=== PATIENT | female | born 1950 | race Caucasian/White ===

== ENCOUNTER 2019-07-06 14:29 | Observation (INO) ==
[2019-07-06] MEDS ORDERED: KETOROLAC 30 MG/ML VIAL IV STA (15:05)
[2019-07-06 15:12] LABS: Basophils # (auto) 0.03 K/uL (0-0.2); Basophils % (auto) 0.3 %; Eosinophils # (auto) 0.13 K/uL (0-0.5); Eosinophils % (auto) 1.2 %; Hematocrit (blood only) 45.5 % (37-47); Hemoglobin 15.2 g/dL (12.0-16.0); Immature Granulocytes # (auto) 0.04 K/uL (0.00-0.02); Immature Granulocytes % (auto) 0.4 %; Lymphocytes # (auto) 1.91 K/uL (1.2-3.4); Lymphocytes % (auto) 17.5 %; Mean Corpuscular Hgb Conc 33.4 g/dL (32-36); Mean Corpuscular Volume 87.7 fL (80-100); Mean Platelet Volume 9.5 fL (7.4-10.4); Monocytes % (auto) 8.2 %; Neutrophils # (auto) 7.93 K/uL (1.4-6.5); Neutrophils % (auto) 72.4 %; Platelet Count 255 K/uL (130-400); RDW Coefficient of Variation 13.6 % (11.5-14.5); RDW Standard Deviation 43.8 fL (36.4-46.3); Red Blood Count 5.19 M/uL (4.2-5.4); White Blood Count 10.94 K/uL (4.8-10.8)
[2019-07-06] MEDS ORDERED: SODIUM CHLORIDE 0.9% 500 ML IV SCH (15:15)
[2019-07-06 15:23] LABS: Alanine Aminotransferase 19 U/L (12-78); Aspartate Aminotransferase 17 U/L (15-37); BUN Creatinine Ratio 12.8 (10-20); Blood Urea Nitrogen 12 mg/dl (7-18); Carbon Dioxide 28 mmol/L (21-32); Chloride 101 mmol/L (98-107); Creatinine Clr Calc Pharmacy 49.7 ml/min; Est GFR (African American) 74.1; Est GFR (Non-African American) 63.9; Glucose 100 mg/dl (70-99); Potassium 3.9 mmol/L (3.5-5.1); Sodium 136 mmol/L (136-145)
[2019-07-06 15:27] LABS: Partial Thromboplastin Time 27.3 Seconds (21.0-31.0)
[2019-07-06 15:28] LABS: Albumin Globulin Ratio 1.1 (0.9-2); Alkaline Phosphatase 70 U/L (45-117); Bilirubin,Total 0.7 mg/dl (0.2-1); Globulin 3.5 gm/dl (2.5-4.0); Total Protein 7.5 gm/dl (6.4-8.2); Troponin I < 0.015 ng/ml (0-0.045)
[2019-07-06 15:30] LABS: D Dimer 710 ug/L FEU (0-500)
--- NOTE | 2019-07-06 15:47 | XRay Report ---
XR chest 1V portable CLINICAL HISTORY: Dyspnea. COMPARISON STUDY: Chest CT April 18, 2019. Chest radiograph June 25, 2019. FINDINGS: Lung volumes are normal. Lungs are clear. There is no pneumothorax or pleural effusion. Car diac size is normal. Mediastinal contours are normal. There is no evidence for pulmonary edema. Minim al left basilar opacity favors epicardial fat pad or atelectasis IMPRESSION: No acute cardiopulmonary findings. Electronically signed by: Fadi Willoughby M.D. 07/06/2019 3:45 PM
[2019-07-06] MEDS ORDERED: OPTIRAY 320 125ml IV PRN (16:24)
--- NOTE | 2019-07-06 16:46 | CT Scan Report ---
CT angio chest PE protocol CT DOSE: 289.57 mGy.cm HISTORY: 68 years-old Female with PE. Acute shortness of breath with right-sided back pain TECHNIQUE: Multiple CTA images of the chest were obtained after the intravenous administration of 120 ml Optiray 320. Coronal and sagittal MIPS were obtained from the axial data set and were submitted for review. All measurements were obtained according to NASCET criteria. A dose lowering technique w as utilized adhering to the principles of ALARA. COMPARISON: Chest radiograph of same day, CTA chest 04/18/2019 FINDINGS: CTA: Heart is normal in size without pericardial effusion. No thoracic aortic aneurysm or dissection. Chávez ncy of the imaged great vessels. 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 The pulmonary arterial tree is opacified to the level of the subsegmenta l branches. Filling defects are noted within subsegmental branches of the right upper and posterior b devan segments of the right lower lobe. No central pulmonary emboli. No evidence of right heart strain . CT CHEST: No focal thyroid nodule or adenopathy. Trace right pleural effusion. No pneumothorax. Suggestion of m ild emphysema. Subsegmental left basilar atelectasis. 1.7 x 1.2 cm pleural-based consolidative opacit y of the posterior segment right upper lobe is noted on image 27 series 4. Mild adjacent pleural calc ifications are noted. Dependent subsegmental consolidation about the basal right lower lobe. Central airways are patent. Mild bibasilar bronchial wall thickening. Scattered hypodense lesions about the liver redemonstrated suggestive of probable cysts. Small hiatal hernia with mild wall thickening about the distal esophagus. Degenerative changes of the shoulders a nd spine. The bones appear intact. Mild anterior wedge deformity of the T11 vertebral body, unchanged . IMPRESSION: 1. Subsegmental pulmonary emboli of the right upper and lower lobes. No central pulmonary emboli. 2. Trace right pleural effusion with subsegmental consolidation about the posterior segment right upp er lobe suggestive of developing pulmonary infarct. 3. Additional findings as above. The above report was generated using voice recognition software. It may contain grammatical, syntax o r spelling errors. Electronically signed by: Herman Chawla M.D. 07/06/2019 4:44 PM
[2019-07-06] MEDS ORDERED: HEPARIN SODIUM/DEXTROSE 25,000 UNITS/500 ML BAG IV SCH ×2 (17:15→20:15)
[2019-07-06] MEDS ORDERED: HEPARIN SOD 5,000 UNIT/0.5 ML VIAL ONE (17:25)
--- NOTE | 2019-07-06 17:35 | Emergency Department Note ---
Entered by Rory Doran acting as a scribe for History of Present Illness General Chief complaint: Shortness of Breath/Dyspnea Time Seen by Provider: 07/06/19 14:54 Source: patient History of Present Illness Onset (ago): hour(s) (this morning) Location: back (upper right) Pain Consistency: + constant Maximum Pain Intensity: 5 Exacerbated By: + movement Associated symptoms: + shortness of breath; no cough and no fever/chills The patient is a 68 year old female who presents to the Emergency Room with complaints of constant upper right back pain that began this morning. The patient states that she can not take a full, deep breath without pain. The patient notes that it sometimes worsens with movement. The patient denies a cough or fever. The patient also reports a few weeks ago she was diagnosed with pneumonia. Home Medications Home Medications Medication Instructions Recorded Confirmed Type clonazepam [Klonopin] 1 mg PO TID 04/18/19 07/06/19 History venlafaxine 150 mg PO QAM 07/06/19 07/06/19 History Allergies Allergy/AdvReac Type Severity Reaction Status Date / Time gluten Allergy Verified 06/25/19 15:49 No Known Drug Allergies Allergy Verified 06/25/19 15:49 Past Med/Surg History Medical History Basal cell carcinoma of skin of face (Acute) Depression (Acute) Tardive dyskinesia (Acute) Pain in throat (Inactive) Pain, dental (Inactive) Tongue pain (Inactive) Family History Mother Parkinson's disease Father Renal failure Basal cell carcinoma Grandmother Diabetes Malignant neoplasm of larynx Malignant neoplasm of cervix Cardiac disorder Grandmother Malignant neoplasm of cervix Grandfather Bleeding ulcer Grandfather Cardiac disorder Other No significant family history Social History Feels Safe at Home: Yes Smoking Status: Never smoker Review of Systems See HPI for pertinent positives & negatives. and A total of 10 systems reviewed and were otherwise negative Physical Exam Vital Signs Vital Signs - 24 hr 07/06/19 14:48 07/06/19 14:58 07/06/19 15:26 Temperature 37.2 C Temperature Source Oral Sepsis Recent Fever Within 48 Hours No Sepsis New/Unexplained Change in Mental Status No Sepsis Action Taken by Nursing No Action Required Pulse Rate 117 H Pulse Rate [Apical] Respiratory Rate 18 Respiratory Effort / Characteristics Non-Labored Spontaneous Respiratory Depth Normal Respiratory Pattern Regular Blood Pressure 146/94 H Blood Pressure [Right Arm] Blood Pressure Mean 111 Blood Pressure Mean [Right Arm] Pulse Oximetry 95 95 Oxygen Delivery Method Room Air Room Air Room Air Oxygen Flow Rate 95 07/06/19 15:49 07/06/19 17:01 Temperature Temperature Source Sepsis Recent Fever Within 48 Hours Sepsis New/Unexplained Change in Mental Status Sepsis Action Taken by Nursing Pulse Rate Pulse Rate [Apical] 112 H 113 H Respiratory Rate 18 20 Respiratory Effort / Characteristics Non-Labored Respiratory Depth Normal Respiratory Pattern Blood Pressure Blood Pressure [Right Arm] 127/86 130/75 Blood Pressure Mean Blood Pressure Mean [Right Arm] 99 93 Pulse Oximetry 98 Oxygen Delivery Method Room Air Oxygen Flow Rate CONSTITUTIONAL/VITAL SIGNS: Reviewed / noted above. GENERAL: Non-toxic in appearance. INTEGUMENTARY: Warm, dry, and [place]. HEAD: Normocephalic. EYES: without scleral icterus or trauma. ENT/OROPHARYNX: clear and moist. LYMPHADENOPATHY/NECK: Is supple without lymphadenopathy or meningismus. RESPIRATORY: Lungs clear and equal. CARDIOVASCULAR: Regular rate and rhythm. GI/ABDOMEN: Soft and nontender. No organomegaly or pulsatile mass. No rebound or guarding. Normal bowel sounds. EXTREMITIES: Warm and well perfused. BACK: No CVA tenderness. NEUROLOGICAL: Intact without focal deficits. PSYCHIATRIC: normal affect. MUSCULOSKELETAL: Normally developed with good muscle tone. Course 1502: Past medical records reviewed. The patient was evaluated in room C4. A complete history and physical exam was performed. 1702: I discussed the patient's case with Dr. Chin-Hospitalist [place]. Dr. Chin will further evaluate the patient. 1719: I updated the patient on her case. Consultations Consultation #1: I discussed the patient's case with Dr. Chin-[place]. Dr. Chin will further evaluate the patient. Time: 17:02 Administered Medications Heparin Sodium/Dextrose (Heparin Sodium/Dextrose) 25,000 units in 500 mls @ 0.02 mls/hr IV .Q24H [facility]; Protocol Stop: 08/05/19 17:14 Last Admin: 07/06/19 17:30 Dose: 1,050 units/hr, 21 mls/hr Documented by: [id number] Cosigned by: [id number] Ioversol (Optiray 320 125ml) 120 ml IV ONCE PRN PRN Reason: Interaction Checking Stop: 07/10/19 16:23 Last Admin: 07/06/19 16:25 Dose: 120 ml Documented by: [id number] Discontinued Medications Heparin Sodium (Porcine) (Heparin Sodium (Porcine)) Confirm Administered Dose 5,000 units .ROUTE .STK-MED ONE Stop: 07/06/19 17:26 Last Admin: 07/06/19 17:30 Dose: 5,000 units Documented by: [id number] Cosigned by: [id number] Heparin Sodium/Dextrose () 1 ea IV NOW STA; Protocol Stop: 07/06/19 17:08 Last Admin: 07/06/19 17:31 Dose: Not Given Documented by: [id number] Sodium Chloride (Nss) 500 mls @ 999 mls/hr IV .Q31M [place] Stop: 07/06/19 15:45 Last Infusion: 07/06/19 16:32 Dose: 0 mls/hr Documented by: [id number] Admin: 07/06/19 15:20 Dose: 999 mls/hr Documented by: [id number] Ketorolac Tromethamine (Toradol) 30 mg IV NOW STA Stop: 07/06/19 15:06 Last Admin: 07/06/19 15:20 Dose: 30 mg Documented by: [id number] Medical Decision Making Differential Diagnosis Differential diagnosis: Etiologies such as cardiac ischemia, aortic dissection, pulmonary embolism, pneumonia, pneumothorax, musculoskeletal, infections, pericarditis, myocarditis, esophageal rupture, gastrointestinal, as well as others were entertained. Medical Records Attestation: I reviewed the patient's medical records. Home Medications Current Medication List: was personally reviewed by me Laboratory Data Attestation: I reviewed the patient's lab results. Result diagrams: 07/06/19 14:55 07/06/19 14:55 Lab Results 07/06/19 07/06/19 07/06/19 Range/Units 14:55 14:55 14:55 WBC 10.94 H (4.8-10.8) K/uL RBC 5.19 (4.2-5.4) M/uL Hgb 15.2 (12.0-16.0) g/dL Hct 45.5 (37-47) % MCV 87.7 (80-100) fL MCH 29.3 (25-34) pg MCHC 33.4 (32-36) g/dL RDW Std Deviation 43.8 (36.4-46.3) fL RDW Coeff of Antonio 13.6 (11.5-14.5) % Plt Count 255 (130-400) K/uL MPV 9.5 (7.4-10.4) fL Immature Gran % (Auto) 0.4 % Neut % (Auto) 72.4 % Lymph % (Auto) 17.5 % Cotton % (Auto) 8.2 % Eos % (Auto) 1.2 % Baso % (Auto) 0.3 % Immature Gran # (Auto) 0.04 H (0.00-0.02) K/uL Neut # (Auto) 7.93 H (1.4-6.5) K/uL Lymph # (Auto) 1.91 (1.2-3.4) K/uL Cotton # (Auto) 0.90 H (0.11-0.59) K/uL Eos # (Auto) 0.13 (0-0.5) K/uL Baso # (Auto) 0.03 (0-0.2) K/uL PT 10.0 (9.0-12.0) Seconds INR 1.0 (0.9-1.1) APTT 27.3 (21.0-31.0) Seconds PTT Ratio 1.0 D-Dimer 710 H* (0-500) ug/L FEU Sodium 136 (136-145) mmol/L Potassium 3.9 (3.5-5.1) mmol/L Chloride 101 (98-107) mmol/L Carbon Dioxide 28 (21-32) mmol/L Anion Gap 7.0 (3-11) BUN 12 (7-18) mg/dl Creatinine 0.91 (0.6-1.2) mg/dl Est Cr Clr Drug Dosing 49.7 ml/min Est GFR ( Amer) 74.1 Est GFR (Non-Af Amer) 63.9 BUN/Creatinine Ratio 12.8 (10-20) Glucose 100 H (70-99) mg/dl Calcium 9.0 (8.5-10.1) mg/dl Total Bilirubin 0.7 (0.2-1) mg/dl AST 17 (15-37) U/L ALT 19 (12-78) U/L Alkaline Phosphatase 70 (45-117) U/L Troponin I < 0.015 (0-0.045) ng/ml Total Protein 7.5 (6.4-8.2) gm/dl Albumin 4.0 (3.4-5.0) gm/dl Globulin 3.5 (2.5-4.0) gm/dl Albumin/Globulin Ratio 1.1 (0.9-2) Imaging Data Radiologist's Impression: Radiology results as stated below per my review and the radiologist's interpretation: XR chest 1V portable CLINICAL HISTORY: Dyspnea. COMPARISON STUDY: Chest CT April 18, 2019. Chest radiograph June 25, 2019. FINDINGS: Lung volumes are normal. Lungs are clear. There is no pneumothorax or pleural effusion. Cardiac size is normal. Mediastinal contours are normal. There is no evidence for pulmonary edema. Minimal left basilar opacity favors epicardial fat pad or atelectasis IMPRESSION: No acute cardiopulmonary findings. CT angio chest PE protocol CT DOSE: 289.57 mGy.cm HISTORY: 68 years-old Female with PE. Acute shortness of breath with right- sided back pain TECHNIQUE: Multiple CTA images of the chest were obtained after the intravenous administration of 120 ml Optiray 320. Coronal and sagittal MIPS were obtained from the axial data set and were submitted for review. All measurements were obtained according to NASCET criteria. A dose lowering technique was utilized adhering to the principles of ALARA. COMPARISON: Chest radiograph of same day, CTA chest 04/18/2019 FINDINGS: CTA: Heart is normal in size without pericardial effusion. No thoracic aortic aneurysm or dissection. Patency of the imaged great vessels. 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 The pulmonary arterial tree is opacified to the level of the subsegmental branches. Filling defects are noted within subsegmental branches of the right upper and posterior basal segments of the right lower lobe. No central pulmonary emboli. No evidence of right heart strain. CT CHEST: No focal thyroid nodule or adenopathy. Trace right pleural effusion. No pneumothorax. Suggestion of mild emphysema. Subsegmental left basilar atelectasis. 1.7 x 1.2 cm pleural-based consolidative opacity of the posterior segment right upper lobe is noted on image 27 series 4. Mild adjacent pleural c alcifications are noted. Dependent subsegmental consolidation about the basal right lower lobe. Central airways are patent. Mild bibasilar bronchial wall thickening. Scattered hypodense lesions about the liver redemonstrated suggestive of probable cysts. Small hiatal hernia with mild wall thickening about the distal esophagus. Degenerative changes of the shoulders and spine. The bones appear intact. Mild anterior wedge deformity of the T11 vertebral body, unchanged. IMPRESSION: 1. Subsegmental pulmonary emboli of the right upper and lower lobes. No central pulmonary emboli. 2. Trace right pleural effusion with subsegmental consolidation about the posterior segment right upper lobe suggestive of developing pulmonary infarct. 3. Additional findings as above. The above report was generated using voice recognition software. It may contain grammatical, syntax or spelling errors. Electronically signed by: Herman Chawla M.D. 07/06/2019 4:44 PM Electronically signed by: Fadi Willoughby M.D. 07/06/2019 3:45 PM ECG Data Attestation: I personally reviewed and interpreted this ECG as follows: Indication: back/shoulder pain Rate (beats per minute): 111 Rhythm: sinus tachycardia Findings: no PAC, no PVC, no ST elevation and no ectopy Blood Pressure Blood Pressure Findings: Normal blood pressure MDM Narrative Presents to the ED with a chief complaint of right upper back pain. The patient states that she has had it since this morning. She denies any cough or fevers. She was treated for pneumonia a few weeks ago. The patient states that she take cannot take a full breath without causing increase in pain. The patient's exam was unremarkable. Her CBC is unremarkable. D-dimer was slightly elevated. Complete metabolic panel was normal, troponin was negative and EKG showed a sinus tach at a rate of 111 with the S1 Q3 inverted T3 abnormality. A chest x- ray was clear. A CT scan of the chest reveals multiple subsegmental PEs in the right upper lung. The patient was started on IV heparin. I spoke with the hospitalist, who will see the patient for further inpatient evaluation and care. Impression & Plan Pulmonary embolism Discharge Plan Visit Data Chief Complaint: Shortness of Breath/Dyspnea ED Provider: Butch Matias Discharge Problem: Pulmonary embolism Patient Disposition: Being Evaluated by Hospitalist Forms Stand Alone Forms: My [facility] Prescriptions Prescriptions: No Action venlafaxine 150 mg capsule,extended release 24hr 150 mg PO QAM RF: 0 clonazepam [Klonopin] 1 mg Tablet 1 mg PO TID RF: 0 Referrals Referrals: Linda Giang MD [Primary Care Provider] - Discharge Problem: Pulmonary embolism Qualifiers: Pulmonary embolism type: unspecified Chronicity: unspecified Acute cor pulmonale presence: without acute cor pulmonale Qualified Code(s): I26.99 - Other pulmonary embolism without acute cor pulmonale The scribe's documentation has been prepared under my direction and personally reviewed by me in its entirety. I confirm that the note above accurately reflects all work, treatment, procedures, and medical decision making performed by me.
--- NOTE | 2019-07-06 18:12 | History & Physical Report ---
Date of Service July 06, 2019 Assessment & Plan (1) Pulmonary embolism: CTA chest on 07/06 showed subsegmental pulmonary emboli of the right upper and lower lobes. Also noted some possible pulmonary infarction in the RUL which is likely causing her pleuritic pain. No signs/symptoms of DVT in either leg. Troponin negative. - Started heparin gtt in the ED - Transition to NOAC tomorrow if able - There is some controversy over treating a subsegmental PE; however, given the accompanying pulmonary infarct, I believe risk:benefit favors anticoagulation. - Will need minimum of 3 months of anticoagulation. 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 This one could possible be considered provoked from bed rest for her bronchitis, though this is a fairly light cause. Her daughter has had several VTE events, leading me to think she may have a secondary cause of her VTE. Given the myriad types of inherited hypercoagulable issues and the possibility of her daughter already undergoing testing, will hold off on this treatment until she is able to speak with her daughter. (2) Bipolar 2 disorder: Was seeing a psychiatrist and was on antipsychotic treatment from which she developed tardive dyskinesia. - Weaned herself off - Still on venlafaxine and Klonopin - Would like to see psych while inpatient History of Present Illness Primary Care Provider: Linda Giang MD Ms. Pires is a 68-year-old female with a history of bipolar disorder and a remote DVT after her who presents with subsegmental pulmonary embolism and possible pulmonary infarction. She was treated in mid June for an acute bronchitis by her PCP. She reports that she felt well for approximately 1 week after finishing her steroids and antibiotics. However in late June, she reports feeling increasingly fatigued. Otherwise she reports feeling normal. Today while working at her computer, she noted some right upper back discomfort. The pain is worse with inspiration and had no knowing alleviating factors. The pain continued to worsen throughout the day, and she presented to the emergency department due to this pain. She denies any significant shortness of breath, cough, hemoptysis, nausea, vomiting, or other review of systems. Of note, the patient's daughter has had multiple issues with blood clots. Some of these were in the context of hormone therapy for IVF; however, she then had what sounds like an IVC thrombus off any. The patient does not know if her daughter underwent any testing for hypercoaguable work-up. Allergies Allergy/AdvReac Type Severity Reaction Status Date / Time gluten Allergy Verified 06/25/19 15:49 No Known Drug Allergies Allergy Verified 06/25/19 15:49 Home Medications Home Medications Medication Instructions Recorded Confirmed Type clonazepam [Klonopin] 1 mg PO TID 04/18/19 07/06/19 History venlafaxine 150 mg PO QAM 07/06/19 07/06/19 History Past Med/Surg History Medical History Basal cell carcinoma of skin of face (Acute) Depression (Acute) Tardive dyskinesia (Acute) Bipolar 2 disorder H/O: hysterectomy Pain in throat (Inactive) Pain, dental (Inactive) Tongue pain (Inactive) Family History Mother Parkinson's disease Father Renal failure Basal cell carcinoma Grandmother Diabetes Malignant neoplasm of larynx Malignant neoplasm of cervix Cardiac disorder Grandmother Malignant neoplasm of cervix Grandfather Bleeding ulcer Grandfather Cardiac disorder Other No significant family history Social History Feels Safe at Home: Yes Smoking Status: Never smoker Review of Systems Constitutional: no fever, no chills and no sweats Eyes: no diplopia Ear, Nose, Mouth, Throat: no ear trauma, no nasal discharge and no dental pain Respiratory: no cough, no chest congestion and no dyspnea Cardiovascular: no chest pain, no dyspnea on exertion, no palpitations and no syncope Gastrointestinal: no abdominal pain, no belching, no constipation, no diarrhea/loose stools, no blood in stools and no melena Musculoskeletal: no back pain, no joint pain and no muscle weakness Integumentary: no rash, no skin ulcer and no erythema Neurologic: no generalized weakness, no loss of sensation, no numbness and no paresthesia Psychiatric: no depression and no anxiety Endocrine: no fatigue, no polydipsia and no polyphagia Physical Exam Constitutional: WD/WN, vitals as above Eyes: EOM intact bilaterally; no conjunctival abnormality ENMT: external ear and nose normal, oropharynx normal Neck: trachea midline, no thyromegaly normal visual inspection Respiratory: normal respiratory effort, lungs clear to auscultation no respiratory distress Cardiovascular: Rate/Rhythm: regular rhythm and + tachycardic Heart Sounds: normal S1 and normal S2 Gastrointestinal (Abdomen): Inspection/Auscultation: abdomen normal to inspection; abdomen not distended Musculoskeletal: no cyanosis or clubbing, extremities motor strength 5/5 Skin: no rashes, warm and dry Neurologic: moves all extremities and awake Psychiatric: Orientation: alert, oriented to person and cooperative Results & Data Vital Signs (Past 12 Hours) Vital Signs Temp Pulse Pulse Resp BP BP Pulse Ox 07/06/19 17:01 113 H 20 130/75 98 07/06/19 15:49 112 H 18 127/86 07/06/19 15:26 95 07/06/19 14:48 37.2 C 117 H 18 146/94 H 95 PG Care Time/CCT Total # of Minutes Spent Total Time Spent with Patient: Total time spent is greater than 50% in coordination of care (as documented) at patient's floor/unit and/or counseling patient: (1) Pulmonary embolism Acute cor pulmonale presence: without acute cor pulmonale Chronicity: unspecified Pulmonary embolism type: unspecified Qualified Code(s): I26.99 - Other pulmonary embolism without acute cor pulmonale
[2019-07-06 19:06] LABS: Appearance Urine Clear (Clear); Bilirubin Urine Negative (Negative); Blood Urine Negative (Negative); Color Urine Yellow; Glucose Urine UA Negative (Negative); Ketones Urine Trace (Negative); Leukocyte Esterase Urine Negative (Negative); Nitrite Urine Negative (Negative); Protein Urine Negative (Negative); Specific Gravity Urine 1.038 (1.000-1.030); Urobilinogen Urine Negative (Negative); pH Urine 7.5 (4.5-7.5)
[2019-07-06] MEDS ORDERED: Heparin IV Standard *NO* Bolus STA (19:09)
[2019-07-06] MEDS ORDERED: clonazePAM 1 MG TAB PO PRN (19:09)
[2019-07-06] MEDS ORDERED: Heparin IV Standard *NO* Bolus IV ONE (20:11)
[2019-07-06] MEDS: ACETAMINOPHEN 325 MG TAB PO PRN (20:34)
[2019-07-06] MEDS: KETOROLAC TROMETHAMINE 15 MG/ML VIAL IV PRN (23:28)
[2019-07-07 02:24] LABS: Partial Thromboplastin Ratio 4.6
[2019-07-07 02:25] LABS: Partial Thromboplastin Time 124.7 Seconds (21.0-31.0)
[2019-07-07 05:43] LABS: Hematocrit (blood only) 39.9 % (37-47); Hemoglobin 13.3 g/dL (12.0-16.0); Mean Corpuscular Hgb Conc 33.3 g/dL (32-36); Mean Corpuscular Volume 86.4 fL (80-100); Mean Platelet Volume 9.8 fL (7.4-10.4); Platelet Count 204 K/uL (130-400); RDW Coefficient of Variation 13.6 % (11.5-14.5); Red Blood Count 4.62 M/uL (4.2-5.4); White Blood Count 7.11 K/uL (4.8-10.8)
[2019-07-07 06:10] LABS: BUN Creatinine Ratio 15.4 (10-20); Calcium 8.1 mg/dl (8.5-10.1); Creatinine Clr Calc Pharmacy 59.5 ml/min; Est GFR (African American) 92.1; Est GFR (Non-African American) 79.5; Potassium 3.8 mmol/L (3.5-5.1)
[2019-07-07] MEDS: KETOROLAC TROMETHAMINE 15 MG/ML VIAL IV PRN (08:36)
[2019-07-07] MEDS ORDERED: VENLAFAXINE HCL XR 150 MG CAPXR PO SCH (09:00)
[2019-07-07] MEDS ORDERED: APIXABAN 5 MG TABLET PO SCH (10:00)
[2019-07-07 10:19] LABS: Partial Thromboplastin Ratio 2.2
[2019-07-07 10:20] LABS: Partial Thromboplastin Time 58.8 Seconds (21.0-31.0)
[2019-07-07] MEDS: ACETAMINOPHEN 325 MG TAB PO PRN (13:30)
--- NOTE | 2019-07-07 13:58 | Discharge Summary ---
Date of Service July 07, 2019 Admission HPI Per Admitting Provider Ms. Pires is a 68-year-old female with a history of bipolar disorder and a remote DVT after her who presents with subsegmental pulmonary embolism and possible pulmonary infarction. She was treated in mid June for an acute bronchitis by her PCP. She reports that she felt well for approximately 1 week after finishing her steroids and antibiotics. However in late June, she reports feeling increasingly fatigued. Otherwise she reports feeling normal. Today while working at her computer, she noted some right upper back discomfort. The pain is worse with inspiration and had no knowing alleviating factors. The pain continued to worsen throughout the day, and she presented to the emergency department due to this pain. She denies any significant shortness of breath, cough, hemoptysis, nausea, vomiting, or other review of systems. Of note, the patient's daughter has had multiple issues with blood clots. Some of these were in the context of hormone therapy for IVF; however, she then had what sounds like an IVC thrombus off any. The patient does not know if her daughter underwent any testing for hypercoaguable work-up. Principal Diagnosis Subsegmental PEs Discharge Exam Constitutional WD/WN, vitals as above Eyes EOM intact bilaterally; no conjunctival abnormality ENMT external ear and nose normal, oropharynx normal Neck trachea midline, no thyromegaly normal visual inspection Respiratory normal respiratory effort, lungs clear to auscultation no respiratory distress Cardiovascular Rate/Rhythm: regular rhythm and + tachycardic Heart Sounds: normal S1 and normal S2 Gastrointestinal (Abdomen) Inspection/Auscultation: abdomen normal to inspection; abdomen not distended Musculoskeletal no cyanosis or clubbing, extremities motor strength 5/5 Skin no rashes, warm and dry Neurologic moves all extremities and awake Psychiatric Orientation: alert, oriented to person and cooperative Discharge Data Allergies Allergy/AdvReac Type Severity Reaction Status Date / Time gluten Allergy Verified 06/25/19 15:49 No Known Drug Allergies Allergy Verified 06/25/19 15:49 Consultations 07/06/19 17:07 ED Decision to Admit Stat 07/06/19 19:09 Consult Psychiatry Routine Ordered Studies 07/06/19 16:13 CT angio chest PE protocol Stat Hospital Course (1) Pulmonary embolism: CTA chest on 07/06 showed subsegmental pulmonary emboli of the right upper and lower lobes. Also noted some possible pulmonary infarction in the RUL which is likely causing her pleuritic pain. No signs/symptoms of DVT in either leg. Troponin negative. - Started heparin gtt in the ED - Transitioned to apixaban - Will need minimum of 3 months of anticoagulation. 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 This one could possible be considered provoked from bed rest for her bronchitis, though this is a fairly light cause. Her daughter has had several VTE events, leading me to think she may have a secondary cause of her VTE. Given the myriad types of inherited hypercoagulable issues and the possibility of her daughter already undergoing testing, will hold off on this treatment until she is able to speak with her daughter. - Will follow up with pulmonology for repeat CT chest in 3 months to ensure the pulmonary infarction is gone. (2) Bipolar 2 disorder: Was seeing a psychiatrist and was on antipsychotic treatment from which she developed tardive dyskinesia. - Weaned herself off - Still on venlafaxine and Klonopin - Was given outpatient psych resources by psych nurse liaison Total Time Total Time Spent Total Time Spent (In Minutes): 35 Total Time Includes: Examination of the Patient, Discharge Planning and Communication With Other Providers Discharge Plan Discharge Items Patient Disposition: Home - Self-Care Reason For Visit: PULMONARY EMBOLISM Discharge Diagnosis: Pulmonary embolism Discharge Goals: Decrease discomfort and Improve function Activity: Resume your previous activity Non-emergency contact: Primary Care Provider Call non-emergency contact if: you have any medication questions and your symptoms worsen Follow-up/Referrals: Linda Giang MD [Primary Care Provider] - 07/10/19 11:30 am (Please, follow up at [facility] with Dr. Giang on SaturdayJuly 10 at 11:30 am. *If you need to change this appointment, call the office at [phone].) Wyatt Geiger MD [Physician] - (Office aware and will call patient with date and time CT chest non-contrast at that time) Diet: Regular Addtl Provider Instructions: Ms. Ramos, You were admitted to the hospital for a blood clot in your lungs. It was a very small blood clot; however, it was causing your heart to go faster and causing pain in your back. We put you on a blood thinner and a pain medication to help resolve the blood clot. You will have to be on this for at least 3 months. Please follow up with Dr. Giang on Saturday to be sure the pain is improving and you are feeling better. We discussed your case with the pulmonology doctors, and they would like you to get a repeat CT scan in 3 months to be sure everything has healed well and will actually call you for a follow up in the next few weeks. Please call their office if you don't hear from them this week. Please call Dr. Giang's office if you have any fevers, chills, more shortness of breath, more pain , or other concerning symptoms. If you cannot reach someone immediately, call or return to the hospital. Prescriptions: New apixaban 5 mg tablet See Rx Instructions .ROUTE .COMPLEX Qty: 72 RF: 0 tramadol 50 mg tablet 50 mg PO TID PRN (Reason: pain) Qty: 20 RF: 0 Continued venlafaxine 150 mg capsule,extended release 24hr 150 mg PO QAM RF: 0 clonazepam [Klonopin] 1 mg Tablet 1 mg PO TID RF: 0 Stand-Alone Forms: [facility] Discharge Orders: Discharge Order (Routine); Ordered 07/07/19 Ordered By: Andrew Stark Admission Data Admit Date/Time: 07/06/19 17:55 Attending Provider: Andrew Stark Admit Provider: Andrew Stark Primary Care Provider: Linda Giang Other Providers: Javi Chin Melissa C Service: Telemetry Medical Other Interventions: Discharge Summary Assessment (RN) Last Done: 07/07/19 13:41
--- NOTE | 2019-07-08 09:14 | Psychiatric Consultation ---
Date of Consultation July 08, 2019 Psych History History of Present Illness Psychiatric consult placed for untreated mood disorder, but patient was discharged by the hospitalist before she could be seen, less than 24 hours after the consult was placed. Allergies Allergy/AdvReac Type Severity Reaction Status Date / Time gluten Allergy Verified 06/25/19 15:49 No Known Drug Allergies Allergy Verified 06/25/19 15:49 Home Medications Home Medications Medication Instructions Recorded Confirmed Type clonazepam [Klonopin] 1 mg PO TID 04/18/19 07/06/19 History venlafaxine 150 mg PO QAM 07/06/19 07/06/19 History apixaban See Rx Instructions .ROUTE 07/07/19 Rx .COMPLEX #72 tab tramadol 50 mg PO TID PRN #20 tab 07/07/19 Rx Personal History Beliefs That Will Affect Care: None Patient History Medical History Basal cell carcinoma of skin of face (Acute) Depression (Acute) Tardive dyskinesia (Acute) Pain in throat (Inactive) Pain, dental (Inactive) Tongue pain (Inactive) Bipolar 2 disorder H/O: hysterectomy Family History Mother Parkinson's disease Father Renal failure Basal cell carcinoma Grandmother Diabetes Malignant neoplasm of larynx Malignant neoplasm of cervix Cardiac disorder Grandmother Malignant neoplasm of cervix Grandfather Bleeding ulcer Grandfather Cardiac disorder Other No significant family history Social History Preferred Language: Setswana Communication Ability: Effective Plater Apprentice Required: No Beliefs That Will Affect Care: None Current Living Situation: Family Current Living Situation Comment: Son Feels Safe at Home: Yes Smoking Status: Never smoker Hx Alcohol Use: No Hx Substance Use: No
[2019-07-14] MEDS ORDERED: APIXABAN 5 MG TABLET PO SCH (09:00)
--- NOTE | 2019-07-14 13:50 | Coding Query ---
A supporting diagnosis is required for the test/procedure performed on this patient in order for us to be reimbursed by the patient's insurance. Please provide a supporting diagnosis for the following test/procedure listed below next to the test name along with your signature. *If there is no additional diagnosis for this patient that would support the following test/procedure please document that below next to the test/procedure. Test(s)/Procedure(s) that require a supporting diagnosis: Factor V Mutation DIAGNOSIS: Unprovoked pulmonary embolism with stroke family history of thrombosis Provider Signature: ___Andrew Stark Date: 07/18/2019 Thank you Melia Romero [employer] Information Management Once completed, please kindly fax back to [phone] For questions please call [phone] [facility]
== END 2019-07-07 14:15 | disposition home or self-care (01) ==
LOC: ED 14:29 → 2N 14:29

== ENCOUNTER 2023-09-15 12:55 | Observation (INO) ==
[2023-09-15 13:41] LABS: Alanine Aminotransferase 8 U/L (7-52); Albumin Globulin Ratio 1.6 (0.9-2); Albumin Level 4.5 gm/dl (3.4-5.0); Alkaline Phosphatase 76 U/L (34-104); Anion Gap 7 (3-11); Aspartate Aminotransferase 17 U/L (13-39); BUN Creatinine Ratio 14.9 (10-20); Bilirubin,Total 0.8 mg/dl (0.2-1.0); Blood Urea Nitrogen 13 mg/dl (6-23); Calcium 9.6 mg/dl (8.6-10.3); Carbon Dioxide 26 mmol/L (21-32); Chloride 106 mmol/L (98-107); Creatinine Clr Calc Pharmacy 48.2 ml/min; Est GFR (African American) 75.5 ml/min; Est GFR (Non-African American) 65.2 ml/min; Globulin 2.9 gm/dl (2.5-4.0); Glucose 111 mg/dl (70-99(Fasting)); Potassium 3.6 mmol/L (3.5-5.1); Sodium 139 mmol/L (136-145); Total Protein 7.4 gm/dl (6.0-8.3)
[2023-09-15 13:46] LABS: Troponin I High Sensitivity < 2.3 pg/ml (0-14)
[2023-09-15 13:53] LABS: Basophils # (auto) 0.03 K/uL (0.00-0.20); Basophils % (auto) 0.4 %; Eosinophils # (auto) 0.05 K/uL (0.00-0.50); Eosinophils % (auto) 0.7 %; Hematocrit (blood only) 40.6 % (37.0-47.0); Hemoglobin 13.5 g/dl (12.0-16.0); Immature Granulocytes # (auto) 0.01 K/uL (0.01-0.20); Immature Granulocytes % (auto) 0.1 %; Lymphocytes # (auto) 1.45 K/uL (1.20-3.40); Lymphocytes % (auto) 21.3 %; Mean Corpuscular Hemoglobin 29.7 pg (25.0-34.0); Mean Corpuscular Hgb Conc 33.3 g/dL (32.0-36.0); Mean Corpuscular Volume 89.2 fL (80.0-100.0); Mean Platelet Volume 10.2 fL (9.4-12.4); Monocytes # (auto) 0.36 K/uL (0.11-0.59); Monocytes % (auto) 5.3 %; Neutrophils % (auto) 72.2 %; Platelet Count 307 K/uL (130-400); RDW Coefficient of Variation 13.2 % (11.5-14.5); RDW Standard Deviation 43.5 fL (36.4-46.3); Red Blood Count 4.55 M/uL (4.20-5.40)
[2023-09-15 14:15] LABS: Partial Thromboplastin Ratio 1.7; Prothrombin Time 10.8 Seconds (9.0-12.0)
[2023-09-15 14:34] LABS: Partial Thromboplastin Time 46.9 Seconds (21.0-31.0)
[2023-09-15] MEDS ORDERED: ASPIRIN CHEW 324 MG PO STA (15:10)
[2023-09-15] MEDS ORDERED: NITROGLYCERIN SL 0.4 MG/TAB TAB SL PRN (15:10)
--- NOTE | 2023-09-15 15:11 | Emergency Department Note ---
Impression & Plan Atypical chest pain ED Provider Note NAME: CHE YOU AGE: 73 SEX: F : 1950 ARRIVES VIA: Walk-In INFORMANT: Patient, ED PROVIDER(S): Enrike Allen MD CHIEF COMPLAINT: Chest pain MEDICAL DECISION MAKING: Patient presents due to concern for chest pain. IV was established and blood work was obtained. Initial troponin is negative EKG with no signs of obvious STEMI. Patient was ordered full dose aspirin. I did speak with on-call manager document control Dr. West who recommended deferring heparin at this time as the patient has no active chest pain negative troponin. Subsequently did speak with inpatient medicine physician Dr. Wiley. Patient was admitted to the medicine service. Blood work shows a normal white count H&H and platelet count with normal kidney function and electrolytes. APTT was elevated at 46.9. BSG 111. Troponin not detectable Discussion w/ other healthcare providers: Dr. West cardiology Dr. Wiley inpatient medicine Prior /Outside records reviewed: Reviewed patient's primary care visit from Dr. Bolivar cleared from August 22, 2023. The patient was diagnosed with diverticulitis recently around that time. Patient reportedly stopped her Eliquis around this time due to concern for blood bleeding patient had agreed to take 2.5 twice daily Differential diagnosis: Cardiac ischemia, aortic dissection, pulmonary embolism, pneumothorax, pneumonia, pericarditis, myocarditis, GERD, cholecystitis, pancreatitis, musculoskeletal, as well as other pathologies were considered. Diagnostics, as interpreted by me: ECG: Normal sinus rhythm, rate of 89, normal MI and QRS, normal axis no ST elevations Cardiac monitoring: An order was placed for continuous cardiac monitoring. The monitor shows a rate of 85 with sinus rhythm. Patient was placed on pulse oximetry Medical decision rules: Heart score Imaging studies: I informally interpreted the patient's chest x-ray which does not show obvious pneumothorax or pneumonia with formal report to follow. HPI: Patient presents due to concern for chest pain that she describes as pressure. The patient states that she was meditating she got very warmed and flush and then subsequently got in the car to drive and then developed centralized chest pressure that radiated to her left arm as well as her jaw. The patient did have associated skin clamminess and nausea but no vomiting. No prior history of known CAD. The patient does have a known history of DVT and PE for which she states she takes Eliquis 2.5 twice daily most recently took this this morning. No leg swelling or calf pain no recent surgeries or procedures. The patient's blood clots were diagnosed about a year ago and the patient has been on Eliquis. Patient does not take any aspirin. Patient denies any family history of heart attack stroke in parents or siblings. Patient states that she does have a history of mild hyperlipidemia but is trying to rectify this with diet and exercise. Patient states that the episode of her chest pressure lasted only 30 minutes and currently has no pain at this time. No cough or fever and the patient denies any falls or trauma PAST MEDICAL HISTORY: See Below PAST SURGICAL HISTORY: See Below SOCIAL HISTORY: See Below HOME MEDICATIONS: See Below ALLERGIES: See Below VITALS: See Below PHYSICAL EXAMINATION: GENERAL: NAD, non-toxic. EYE EXAM: Normal conjunctiva. PERRL, no anisocoria and EOM's grossly intact w/o pain. OROPHARYNX: Moist mucus membranes, grossly normal dentition. NECK: Supple, no nuchal rigidity, no adenopathy, non-tender. No signs of meningismus. FROM of the neck with good chin to chest and neck extension. No stridor. LUNGS: Clear to auscultation. Normal chest wall mechanics. HEART: NSR, no MRG. ABDOMEN: Abdomen soft, non-tender, no masses, no rebound or guarding. BACK: No CVA TTP. SKIN: No rashes and no bruising. UPPER EXTREMITIES: Upper extremities are grossly normal. LOWER EXTREMITIES: Grossly normal, no edema. Negative Homans' sign bilaterally. NEURO EXAM: A&O x3, cranial nerves II-XII grossly intact, normal speech, moves all 4 extremities. Past Med/Surg History Medical History Basal cell carcinoma of skin of face removed in office Bipolar 2 disorder Depression GERD (gastroesophageal reflux disease) Hearing deficit History of anesthesia reaction after colonoscopy 1 yr ago at [facility], pt states that night she felt like she couldnt move her whole body, but by morning felt ok without any issues History of basal cell cancer per pt "quite a few" all removed in office History of DVT (deep vein thrombosis) hx of during History of pulmonary embolism (~2018) unknown cause, currently on eliquis bid History of squamous cell carcinoma on leg Hyperlipidemia Moderate obstructive sleep apnea Ocular migraine On anticoagulant therapy eliquis bid Osteoarthritis Scoliosis mild Tardive dyskinesia Surgical History H/O colonoscopy H/O: hysterectomy History of section, low transverse x2 History of esophagogastroduodenoscopy (EGD) (~03/2016) History of squamous cell carcinoma excision History of wisdom tooth extraction Family History Mother Parkinson's disease Stroke Father Basal cell carcinoma Renal failure Grandmother Malignant neoplasm of cervix Malignant neoplasm of larynx Diabetes Cardiac disorder Grandmother Malignant neoplasm of cervix Grandfather Bleeding ulcer Grandfather Cardiac disorder Other No family history of adverse response to anesthesia No significant family history Denies family history of Ovarian cancer Prostate cancer Myocardial infarction Breast cancer Colorectal cancer Social History Smoking Status: Never smoker Second Hand Exposure: No; Do You Dip or Chew Tobacco: No; Hx Alcohol Use: No Hx Substance Use: No Preferred Language: Croatian Communication Ability: Effective [employer] Supervisor Required: No Beliefs That Will Affect Care: None marital status: Current Living Situation: Family Current Living Situation Comment: Son How many Children do You have: 2 Feels Safe at Home: Yes Childhood Exposure to Second-Hand Smoke: Yes Diet: regular caffeine: Yes Dental Care, Regularly: Yes Seatbelt Use: always Sunscreen Use: Yes Assistive Devices: Glasses and Hearing Aid - Bilateral Allergies Allergies Allergy/AdvReac Type Severity Reaction Status Date / Time gluten Allergy Intermediate "joint Verified 08/22/23 11:29 pain, muscle aches"--has an intolerance quetiapine [From Seroquel] Allergy Intermediate tardive Verified 08/22/23 11:29 dyskinesia Home Meds Home Medications Medication Instructions Recorded Confirmed lamotrigine 100 mg tablet 100 mg PO DAILY 08/08/23 09/15/23 apixaban 5 mg tablet (Eliquis) 5 mg PO BID 09/15/23 09/15/23 Previous Rx's Medication Instructions Recorded omeprazole 20 mg capsule,delayed 40 mg PO HS #90 caps 12/11/22 release trazodone 50 mg tablet 50 mg PO HS PRN Sleep #90 tabs 12/11/22 famotidine 20 mg tablet 20 mg PO QAM #90 tabs 08/22/23 Results & Data (ED) Vital Signs Vital Signs - 24 hr 09/15/23 12:58 09/15/23 15:09 09/15/23 14:55 Pulse Rate 85 91 H Pulse Rate [Apical] 88 Respiratory Rate 20 18 Blood Pressure 126/71 Blood Pressure [Left Arm] 128/91 Blood Pressure Mean 89 Blood Pressure Mean [Left Arm] 103 Pulse Oximetry 98 95 Oxygen Delivery Method Room Air Room Air Sepsis Recent Fever Within 48 Hours No Sepsis New/Unexplained Change in Mental Status N/A Sepsis Action Taken by Nursing No Action Required Home Medications Current Medication List: was personally reviewed by me Laboratory Data Attestation: I reviewed the patient's lab results. 09/15/23 13:07 09/15/23 13:07 Lab Results 09/15/23 09/15/23 09/15/23 Range/Units 13:07 13:07 13:07 WBC 6.80 (4.8-10.8) K/ul RBC 4.55 (4.20-5.40) M/uL Hgb 13.5 (12.0-16.0) g/dl Hct 40.6 (37.0-47.0) % MCV 89.2 (80.0-100.0) fL MCH 29.7 (25.0-34.0) pg MCHC 33.3 (32.0-36.0) g/dL RDW Std Deviation 43.5 (36.4-46.3) fL RDW Coeff of Antonio 13.2 (11.5-14.5) % Plt Count 307 (130-400) K/uL MPV 10.2 (9.4-12.4) fL Immature Gran % (Auto) 0.1 % Neut % (Auto) 72.2 % Lymph % (Auto) 21.3 % Er[place] % (Auto) 5.3 % Eos % (Auto) 0.7 % Baso % (Auto) 0.4 % Neut # (Auto) 4.90 (1.40-6.50) K/uL Lymph # (Auto) 1.45 (1.20-3.40) K/uL Erath # (Auto) 0.36 (0.11-0.59) K/uL Eos # (Auto) 0.05 (0.00-0.50) K/uL Baso # (Auto) 0.03 (0.00-0.20) K/uL Immature Gran # (Auto) 0.01 (0.01-0.20) K/uL PT 10.8 (9.0-12.0) Seconds INR 1.0 (0.9-1.1) APTT 46.9 H* (21.0-31.0) Seconds PTT Ratio 1.7 Sodium 139 (136-145) mmol/L Potassium 3.6 (3.5-5.1) mmol/L Chloride 106 (98-107) mmol/L Carbon Dioxide 26 (21-32) mmol/L Anion Gap 7 (3-11) BUN 13 (6-23) mg/dl Creatinine 0.87 (0.6-1.2) mg/dl Est Cr Clr Drug Dosing 48.2 ml/min Est GFR ( Amer) 75.5 ml/min Est GFR (Non-Af Amer) 65.2 ml/min BUN/Creatinine Ratio 14.9 (10-20) Glucose 111 H (70-99(Fasting)) mg/dl Calcium 9.6 (8.6-10.3) mg/dl Total Bilirubin 0.8 (0.2-1.0) mg/dl AST 17 (13-39) U/L ALT 8 (7-52) U/L Alkaline Phosphatase 76 (34-104) U/L Troponin I High Sens < 2.3 (0-14) pg/ml Total Protein 7.4 (6.0-8.3) gm/dl Albumin 4.5 (3.4-5.0) gm/dl Globulin 2.9 (2.5-4.0) gm/dl Albumin/Globulin Ratio 1.6 (0.9-2) Administered Medications Discontinued Medications Aspirin (Aspirin Chew 324 Mg) 324 mg PO NOW STA Stop: 09/15/23 15:11 Last Admin: 09/15/23 15:19 Dose: 324 mg Documented By: OL Sodium Chloride (Nss) 500 mls @ 999 mls/hr IV .Q31M ONE Stop: 09/15/23 15:44 Last Infusion: 09/15/23 15:51 Dose: 0 mls/hr Documented By: Admin: 09/15/23 15:19 Dose: 999 mls/hr Documented By: OL Imaging Data Radiologist's Impression: Chest X-Ray 09/15/23 13:01 XR chest 1V not portable CLINICAL HISTORY: Chest pain, nonspecific TECHNIQUE: Single frontal radiograph of the chest was obtained. Comparison: Comparison is made to chest and abdomen radiograph 08/20/2023 FINDINGS: No lines and tubes are seen. The cardiomediastinal silhouette is normal. The lungs are clear. No evidence of pleural effusion or pneumothorax. IMPRESSION: No acute chest disease. ACT 112: Negative or not required by law. Electronically signed by: Madhu Gandhi M.D. 09/15/2023 3:57 PM Discharge Plan Visit Data Chief Complaint: Chest Pain Stated Complaint: CHEST PAIN ED Provider: Enrike Allen Discharge Problem: Atypical chest pain Forms Stand Alone Forms: [facility] Prescriptions Prescriptions: No Action omeprazole 20 mg capsule,delayed release(DR/EC) 40 mg PO HS Qty: 90 1RF trazodone 50 mg tablet 50 mg PO HS PRN (Reason: Sleep) Qty: 90 1RF Rx Instructions: 50 mg PO AT BEDTIME PRN; lamotrigine 100 mg tablet 100 mg PO DAILY famotidine 20 mg tablet 20 mg PO QAM Qty: 90 1RF Eliquis 5 mg tablet 5 mg PO BID Referrals Referrals: Linda Giang MD [Primary Care Provider] -
[2023-09-15] MEDS ORDERED: SODIUM CHLORIDE 0.9% 500 ML IV ONE ×2 (15:14→23:09)
--- NOTE | 2023-09-15 15:23 | History & Physical Report ---
Date of Service September 15, 2023 Assessment & Plan (1) Chest pain: Plan: Chest pain - 30 seconds, no prior anginal sx. Sudden on set with chest, L jaw, and neck discomfort while in car - NO chest pain on exam - trop wnl, noniscemic admitting ekg - trops trended - echo pending - cardiology consulted for stress eval 09/16 -Heparin for treatment of ACS deferred, patient is recommended for long-term anticoagulation due to her history of recurrent DVT/PE. Her next dose of Eliquis would have been due at 9 PM, will temporarily replace this with heparin GTT at 9 and can transition back to Eliquis at discharge - Recieved a full dose aspirin in ER (2) Pulmonary embolism: Plan: History of PE and DVT x2 Patient had a PE in 2019 and 2 DVTs. Patient stopped Eliquis last due to concern that she would bleed if she were in a car accident and would bleed a lot when she nicked or cut herself. Patient had discussed naturopathic remedies but these were not recommended as appropriate. On shared decision making patient was agreeable to start 2.5 mg twice daily dose of Eliquis - Currently taking eliquis 2.5mg by mouth twice daily, took this this morning - Not sure why she had blood clots in the past, 2 epidoes of blood clots during and 1 episode of PE outside of - Due to history of recurrent DVT/PE would continue a blood thinner indefinately. While inpatient will temporarily replace eliquis with heparin gtt. Start gtt at 9pm tonight when next eliquis would have been due HLD - Previously on a statin, stopped a statin and diet controlled about 1 year ago LDL decreased from 183 down to 127 on atorvastatin previously, patient is no longer taking this Lipid recheck ordered. (3) Bipolar 1 disorder: Plan: Bipolar 1, history of tar dive Follows with [facility] Continue home medicines, lamictal/tarzodine (4) GERD (gastroesophageal reflux disease): Plan: GERD Convert PPI to Protonix while inpatient, continue Pepcid Plan Diet: Heart healthy Disposition: PCU for chest pain Diet: Regular, n.p.o. at midnight for cardiac eval CODE STATUS: DNR/DNI. Initially conditional code with compressions without intubation, discussed process and nature of CPR and CODE STATUS at length with patient. On further discussion patient reports that conditional code would not be consistent with her wishes in the event of a complete cardiopulmonary arrest she want to be allowed to pass consistent with DNR/DNI History of Present Illness Primary Care Provider: Linda Giang MD Jessy Pires is a 73-year-old female with a past medical history of moderate DARREN, PE, bipolar 1, GERD, depression, tar dive dyskinesia on anticoagulation for PE up until this past August when she stopped it around the time she developed diverticulitis. She presents with an episode of atypical chest pain with a negative troponin and nonischemic EKG, received aspirin and has no chest pain at rest while in the ER. Pt was meditating this morning in jew when she felt lightheaded. Was driving her car shortly after and had an episode of chest pain while driving around noon. Chest pressure light something squeezing her chest came on suddenly which moved into her left arm and into her left jaw. NEver has suchsymptoms before and was more squeezing than pain. Pressure was 1-2/10 in intensity. Was clammy and sweaty and slightly short of breath and flushed with th esymptoms. Lasted about 30 seconds then passed. Currently she feels well. No recent fever, chills, sweats preceding this. No cough. No dysuria. No abdominal pain no back pain or shoulder related pain. Does not use tobacco products. Is taking her Eliquis 2.5 mg twice daily, last took this this morning before jew Medical History: Reviewed Medications: Reviewed. Seroquel --> tardive Surgical History: Reviewed Family history: Reviewed Allergies: Reviewed Social History: No tobacco, no etoh use Code Status: DNR/DNI Allergies Allergy/AdvReac Type Severity Reaction Status Date / Time quetiapine [From Seroquel] Allergy Intermediate tardive Verified 08/22/23 11:29 dyskinesia Home Medications Medication Instructions Recorded Confirmed Type omeprazole 20 mg capsule,delayed 40 mg PO HS #90 caps 12/11/22 09/15/23 Rx release trazodone 50 mg tablet 50 mg PO HS PRN Sleep #90 tabs 12/11/22 09/15/23 Rx lamotrigine 100 mg tablet 100 mg PO DAILY 08/08/23 09/15/23 History famotidine 20 mg tablet 20 mg PO QAM #90 tabs 08/22/23 09/15/23 Rx apixaban 5 mg tablet (Eliquis) 5 mg PO BID 09/15/23 09/15/23 History Past Med/Surg History Medical History Basal cell carcinoma of skin of face removed in office Bipolar 2 disorder Depression GERD (gastroesophageal reflux disease) Hearing deficit History of anesthesia reaction after colonoscopy 1 yr ago at [facility], pt states that night she felt like she couldnt move her whole body, but by morning felt ok without any issues History of basal cell cancer per pt "quite a few" all removed in office History of DVT (deep vein thrombosis) hx of during History of pulmonary embolism (~2018) unknown cause, currently on eliquis bid History of squamous cell carcinoma on leg Hyperlipidemia Moderate obstructive sleep apnea Ocular migraine On anticoagulant therapy eliquis bid Osteoarthritis Scoliosis mild Tardive dyskinesia Surgical History H/O colonoscopy H/O: hysterectomy History of section, low transverse x2 History of esophagogastroduodenoscopy (EGD) (~03/2016) History of squamous cell carcinoma excision History of wisdom tooth extraction Family History Mother Parkinson's disease Stroke Father Basal cell carcinoma Renal failure Grandmother Malignant neoplasm of cervix Malignant neoplasm of larynx Diabetes Cardiac disorder Grandmother Malignant neoplasm of cervix Grandfather Bleeding ulcer Grandfather Cardiac disorder Other No family history of adverse response to anesthesia No significant family history Denies family history of Ovarian cancer Prostate cancer Myocardial infarction Breast cancer Colorectal cancer Social History Smoking Status: Never smoker Second Hand Exposure: No; Do You Dip or Chew Tobacco: No; Tobacco Cessation Education Requested by Patient: No Hx Alcohol Use: No Hx Substance Use: No Preferred Language: Mauritian Communication Ability: Effective Certified Coder Required: No Beliefs That Will Affect Care: None marital status: Current Living Situation: Alone Current Living Situation Comment: Son How many Children do You have: 2 Other Information That Helps Us Care for You: No Feels Safe at Home: Yes Safety Concerns: Feels Safe At This Time Childhood Exposure to Second-Hand Smoke: Yes Diet: regular caffeine: Yes Dental Care, Regularly: Yes Seatbelt Use: always Sunscreen Use: Yes Assistive Devices: Glasses and Hearing Aid - Bilateral Physical Exam Physical Exam: General: A&Ox3. NAD. Cooperative. HEENT: Atraumatic, normocephalic. Vision/hearing intact. Pulm:Symmetrical chest rise. No increased work of breathing. No respiratory distress. Cardiac: RRR. No JVD. Extremities: No lower extremity edema. Moves all extremities equally. Results & Data Results & Data Vital Signs (Past 12 Hours) Vital Signs Pulse Pulse Resp BP BP Pulse Ox O2 Del Method 09/15/23 14:55 88 18 128/91 95 Room Air 09/15/23 15:09 91 H 09/15/23 12:58 85 20 126/71 98 Room Air PG Care Time/CCT Total # of Minutes Spent Total Time Spent with Patient: Total time spent is greater than 50% in coordination of care (as documented) at patient's floor/unit and/or counseling patient: Coding Level of Care Code 49771 INT INP/OBS CARE 3/75MIN Diagnoses Chest pain R07.9 Pulmonary embolism I26.99 Acute cor pulmonale presence: without acute cor pulmonale Chronicity: unspecified Pulmonary embolism type: unspecified Bipolar 1 disorder F31.9 GERD (gastroesophageal reflux disease) K21.9 (2) Pulmonary embolism Acute cor pulmonale presence: without acute cor pulmonale Chronicity: unspecified Pulmonary embolism type: unspecified Qualified Code(s): I26.99 - Other pulmonary embolism without acute cor pulmonale
--- NOTE | 2023-09-15 15:58 | XRay Report ---
XR chest 1V not portable CLINICAL HISTORY: Chest pain, nonspecific TECHNIQUE: Single frontal radiograph of the chest was obtained. Comparison: Comparison is made to chest and abdomen radiograph 08/20/2023 FINDINGS: No lines and tubes are seen. The cardiomediastinal silhouette is normal. The lungs are clear. No evid ence of pleural effusion or pneumothorax. IMPRESSION: No acute chest disease. ACT 112: Negative or not required by law. Electronically signed by: Madhu Gandhi M.D. 09/15/2023 3:57 PM
[2023-09-15] MEDS ORDERED: traZODone HCL 50 MG TAB PO PRN (19:12)
[2023-09-15] MEDS ORDERED: PANTOprazole 40 MG TAB PO SCH (21:00)
[2023-09-15] MEDS ORDERED: Heparin IV Adult Wt-Based Low-Dose *NO* Bolus Protocol IV ONE (21:00)
[2023-09-15] MEDS ORDERED: HEPARIN SODIUM/DEXTROSE 25,000 UNITS/500 ML BAG IV SCH (21:00)
[2023-09-16 03:39] LABS: Basophils # (auto) 0.04 K/uL (0.00-0.20); Basophils % (auto) 0.7 %; Eosinophils # (auto) 0.19 K/uL (0.00-0.50); Eosinophils % (auto) 3.4 %; Hematocrit (blood only) 35.5 % (37.0-47.0); Hemoglobin 11.9 g/dl (12.0-16.0); Lymphocytes # (auto) 2.64 K/uL (1.20-3.40); Lymphocytes % (auto) 47.5 %; Mean Corpuscular Hemoglobin 29.5 pg (25.0-34.0); Mean Corpuscular Hgb Conc 33.5 g/dL (32.0-36.0); Mean Corpuscular Volume 88.1 fL (80.0-100.0); Mean Platelet Volume 10.1 fL (9.4-12.4); Monocytes # (auto) 0.38 K/uL (0.11-0.59); Monocytes % (auto) 6.8 %; Neutrophils # (auto) 2.31 K/uL (1.40-6.50); Neutrophils % (auto) 41.6 %; Platelet Count 266 K/uL (130-400); RDW Coefficient of Variation 13.2 % (11.5-14.5); RDW Standard Deviation 42.6 fL (36.4-46.3); Red Blood Count 4.03 M/uL (4.20-5.40); White Blood Count 5.56 K/ul (4.8-10.8)
[2023-09-16] MEDS: SODIUM CHLORIDE 0.9% 1,000 ML IV SCH ×2 (03:39→07:57)
[2023-09-16 03:49] LABS: BUN Creatinine Ratio 18.3 (10-20); Calcium 8.6 mg/dl (8.6-10.3); Chol HDL Ratio 5.1 (0-5); Est GFR (African American) 103.3 ml/min; Est GFR (Non-African American) 89.2 ml/min; Potassium 3.7 mmol/L (3.5-5.1)
[2023-09-16 04:17] LABS: Partial Thromboplastin Ratio > 4.9
[2023-09-16 04:22] LABS: Partial Thromboplastin Time > 139.0 Seconds (21.0-31.0)
[2023-09-16 05:58] LABS: Partial Thromboplastin Ratio > 4.9
[2023-09-16 06:15] LABS: Partial Thromboplastin Time > 139.0 Seconds (21.0-31.0)
[2023-09-16] MEDS ORDERED: FAMOTIDINE 20 MG TAB PO SCH (09:00)
[2023-09-16] MEDS ORDERED: lamoTRIgine 100 MG TAB PO SCH (09:00)
[2023-09-16 09:38] LABS: Partial Thromboplastin Ratio 1.6
[2023-09-16 09:47] LABS: Partial Thromboplastin Time 45.6 Seconds (21.0-31.0)
--- NOTE | 2023-09-16 12:42 | Hospitalist Progress Note ---
Date of Service September 16, 2023 Assessment & Plan (1) Chest pain: Plan: Resolved. No evidence of acute coronary syndrome. Troponins are negative x2. No acute EKG changes. Cardiac echo report is pending. Cardiology consultation pending. Continue heparin drip for now. Eventual switch back to oral Eliquis (2) Pulmonary embolism: Plan: History of PE and DVT x2. Currently on heparin drip. She takes Eliquis chronically at home (3) Bipolar 1 disorder: Plan: Stable. Continue current medical management (4) GERD (gastroesophageal reflux disease): Plan: Stable. Continue PPI therapy Plan Hopeful discharge to home later today, September 16, after seen by cardiology Admission and Anticipated Discharge Date Admission Date: September 15, 2023 Subjective Alert and oriented. She denies any current chest discomfort. Troponins are negative x2. She is currently on a heparin drip but usually takes Eliquis at home. No acute EKG changes. Cardiology consultation is pending. Hopefully she can go home later today, September 16 Review of Systems Review of Systems: Constitutional-no fever or chills ENT-no blurred vision, no double vision, no epistaxis, no sore throat Respiratory-no cough, no wheezing, no shortness of breath Cardiac-no palpitations, no syncope. Chest discomfort has resolved GI-no nausea, vomiting, diarrhea, melena, hematochezia -no urinary retention, no urinary incontinence, no dysuria, no hematuria Musculoskeletal-no joint pain, no muscle tenderness Skin-no bruising, no rashes, no pruritus Neuro-no isolated weakness, no paresthesia, no weakness Psych-no depression, no anxiety Physical Exam Physical Exam: General-alert and oriented x3, no fevers, no chills HEENT-head atraumatic and normocephalic, pupils equal and reactive to light, extraocular muscles intact Neck-no lymphadenopathy or thyromegaly, trachea midline Chest-clear to auscultation percussion. No rales wheezing or rhonchi Cardiac-regular rate and rhythm, normal S1 and S2 Abdomen-normal bowel sounds, nontender, no hepatosplenomegaly Extremities-no cyanosis, clubbing, or edema Neuro-cranial nerves II through XII intact, motor and sensory function within normal limits, strength symmetrical, no focal deficits Psych-normal affect, normal mood Results & Data Results & Data Vital Signs (Past 12 Hours) Vital Signs Temp Pulse Pulse Resp BP Pulse Ox O2 Del Method 09/16/23 10:46 36.9 C 81 19 109/65 94 Room Air 09/16/23 07:52 69 09/16/23 07:46 36.9 C 74 22 119/67 93 Room Air 09/16/23 06:05 100/62 09/16/23 03:18 37.2 C 62 18 89/55 L 93 Room Air Laboratory Results 09/16/23 03:19 09/16/23 03:19 PG Care Time/CCT Total # of Minutes Spent Total Time Spent with Patient: Total time spent is greater than 50% in coordination of care (as documented) at patient's floor/unit and/or counseling patient: Coding Level of Care Code 72724 SUB INP/OBS CARE 3/50MIN Diagnoses Chest pain R07.9 Pulmonary embolism I26.99 Acute cor pulmonale presence: without acute cor pulmonale Chronicity: unspecified Pulmonary embolism type: unspecified Bipolar 1 disorder F31.9 GERD (gastroesophageal reflux disease) K21.9 (2) Pulmonary embolism Acute cor pulmonale presence: without acute cor pulmonale Chronicity: unspecified Pulmonary embolism type: unspecified Qualified Code(s): I26.99 - Other pulmonary embolism without acute cor pulmonale
--- NOTE | 2023-09-16 15:35 | Discharge Summary ---
Date of Service September 16, 2023 Admission HPI Per Admitting Provider Jessy Pires is a 73-year-old female with a past medical history of moderate DARREN, PE, bipolar 1, GERD, depression, tar dive dyskinesia on anticoagulation for PE up until this past August when she stopped it around the time she developed diverticulitis. She presents with an episode of atypical chest pain with a negative troponin and nonischemic EKG, received aspirin and has no chest pain at rest while in the ER. Pt was meditating this morning in jain when she felt lightheaded. Was driving her car shortly after and had an episode of chest pain while driving around noon. Chest pressure light something squeezing her chest came on suddenly which moved into her left arm and into her left jaw. NEver has suchsymptoms before and was more squeezing than pain. Pressure was 1-2/10 in intensity. Was clammy and sweaty and slightly short of breath and flushed with th esymptoms. Lasted about 30 seconds then passed. Currently she feels well. No recent fever, chills, sweats preceding this. No cough. No dysuria. No abdominal pain no back pain or shoulder related pain. Does not use tobacco products. Is taking her Eliquis 2.5 mg twice daily, last took this this morning before jain Medical History: Reviewed Medications: Reviewed. Seroquel --> tardive Surgical History: Reviewed Family history: Reviewed Allergies: Reviewed Social History: No tobacco, no etoh use Code Status: DNR/DNI Principal Diagnosis Chest pain Discharge Exam General-alert and oriented x3, no fevers, no chills HEENT-head atraumatic and normocephalic, pupils equal and reactive to light, extraocular muscles intact Neck-no lymphadenopathy or thyromegaly, trachea midline Chest-clear to auscultation percussion. No rales wheezing or rhonchi Cardiac-regular rate and rhythm, normal S1 and S2 Abdomen-normal bowel sounds, nontender, no hepatosplenomegaly Extremities-no cyanosis, clubbing, or edema Neuro-cranial nerves II through XII intact, motor and sensory function within normal limits, strength symmetrical, no focal deficits Psych-normal affect, normal mood Discharge Data Allergies Allergy/AdvReac Type Severity Reaction Status Date / Time quetiapine [From Seroquel] Allergy Intermediate tardive Verified 08/22/23 11:29 dyskinesia Consultations 09/15/23 15:14 ED Decision to Admit Stat 09/15/23 15:26 ED Decision to Admit Stat Hospital Course (1) Chest pain: Resolved. No evidence of acute coronary syndrome. Troponins are negative x2. No acute EKG changes. Cardiac echo report is still pending. Cardiology consultation was not done yet and has been canceled. She can see cardiology as an outpatient if needed. The proper use of sublingual nitroglycerin was explained to her if she has any recurrent chest discomfort. A prescription was sent to her pharmacy. She will be discharged home today (2) Pulmonary embolism: History of PE and DVT x2. Treated with heparin drip while hospitalized. She takes Eliquis chronically at home (3) Bipolar 1 disorder: Stable. Continue current medical management (4) GERD (gastroesophageal reflux disease): Stable. Continue PPI therapy Plan Home today, September 16. Use sublingual nitroglycerin as needed if any recurrent chest discomfort. Her PCP can refer her to cardiology as an outpatient if needed. Total Time Total Time Spent Total Time Spent (In Minutes): 45 minutes Discharge Plan Discharge Items Patient Disposition: Home - Self-Care Reason For Visit: ACUTE CHEST PAIN/ANGINA Discharge Diagnosis: Chest pain Activity: Resume your previous activity Non-emergency contact: Primary Care Provider Call non-emergency contact if: you have any medication questions and your symptoms worsen Follow-up/Referrals: Linda Giang MD [Primary Care Provider] - Diet: Regular and Heart Healthy Addtl Attending Provider Instructions: Use nitroglycerin under the tongue as needed for any chest discomfort as directed. All other medications remain the same Pending Studies at Discharge: Yes Studies:: Cardiac echo report Stand-Alone [facility]: [facility] Smoking Cessation Medications and DC Order Prescriptions: New nitroglycerin 0.4 mg tablet, sublingual 0.4 mg sublingual Q5M PRN (Reason: chest pain) Qty: 25 0RF Continued omeprazole 20 mg capsule,delayed release(DR/EC) 40 mg PO HS Qty: 90 1RF trazodone 50 mg tablet 50 mg PO HS PRN (Reason: Sleep) Qty: 90 1RF Rx Instructions: 50 mg PO AT BEDTIME PRN; lamotrigine 100 mg tablet 100 mg PO DAILY famotidine 20 mg tablet 20 mg PO QAM Qty: 90 1RF Eliquis 5 mg tablet 5 mg PO BID Discharge Orders: Discharge Order (Routine); Ordered 09/16/23 Ordered By: Allen Nelson Admission Data Admit Date/Time: 09/15/23 16:25 Attending Provider: Allen Nelson Admit Provider: Pablito Wiley Primary Care Provider: Linda Giang Other Providers: Pablito Wiley Coding Level of Care Code 56904 INP/OBS DISCH >30 MIN Diagnoses Chest pain R07.9 Pulmonary embolism I26.99 Acute cor pulmonale presence: without acute cor pulmonale Chronicity: unspecified Pulmonary embolism type: unspecified Bipolar 1 disorder F31.9 GERD (gastroesophageal reflux disease) K21.9
--- NOTE | 2023-09-16 18:30 | XCELERA ---
[id number]
--- NOTE | 2023-09-17 06:57 | Electrocardiogram Report ---
Test Reason : Blood Pressure : / mmHG Vent. Rate : 089 BPM Atrial Rate : 089 BPM P-R Int : 162 ms QRS Dur : 086 ms QT Int : 388 ms P-R-T Axes : 045 001 037 degrees QTc Int : 472 ms Normal sinus rhythm Possible Left atrial enlargement Low voltage QRS Cannot rule out Anterior infarct , age undetermined Abnormal ECG When compared with ECG of 14-FEB-2021 11:27, Nonspecific T wave abnormality now evident in Anterior leads Confirmed by Robnison Olguin ([id number]) on 09/17/2023 6:56:42 AM Referred By: REFERRED SELF Confirmed By:Robinson Olguin
--- NOTE | 2023-09-17 07:26 | Electrocardiogram Report ---
Test Reason : Blood Pressure : / mmHG Vent. Rate : 069 BPM Atrial Rate : 069 BPM P-R Int : 174 ms QRS Dur : 086 ms QT Int : 422 ms P-R-T Axes : 021 034 013 degrees QTc Int : 452 ms Normal sinus rhythm Low voltage QRS Borderline ECG When compared with ECG of 15-SEP-2023 13:06, (unconfirmed) Nonspecific T wave abnormality no longer evident in Anterior leads Confirmed by Robinson Olguin ([id number]) on 09/17/2023 7:25:57 AM Referred By: REFERRED SELF Confirmed By:Robinson Olguin
== END 2023-09-16 18:19 | disposition home or self-care (01) ==
LOC: 2E 12:55 → ED 12:55 → SUATTDRO 16:25 → 2E 18:12